=== PATIENT | male | born 1970 | race Caucasian/White ===

== ENCOUNTER 2023-11-11 21:43 | Emergency (ER) | payer OTHER, SELFPAY ==
--- NOTE | ~2023-11-11 | CT_ITS ---
CT abdomen pelvis w con Ordering provider: Genna Doshi PA-C History: 53 years Male with . lower abd pain, diarrhea, vomiting . Comparison: None. Technique: CT abdomen and pelvis with IV and without oral contrast. Automated exposure control and it erative reconstruction technique were employed. The dose-length product was 1302.15 mGy-cm. 100 mL Om nipaque 350 was given IV. Findings: VISUALIZED LOWER CHEST: Bilateral dependent atelectatic changes. UPPER ABDOMINAL ORGANS: Liver: Mild hepatomegaly. Gallbladder: Normal. Spleen: Normal. Stomach/duodenum: Normal. Pancreas: Normal. Adrenals: Slightly prominent left adrenal gland. Kidneys: Normal. PELVIC ORGANS: The bladder shows slightly thickened wall. Evaluation for cystitis advised. Enlarged p rostate. BOWEL AND MESENTERY: Colon: No evidence of diverticulitis. Normal appendix. Small Bowel: Fluid containing small bowel is seen in the pelvis which may indicate diarrhea. No obstr uction. Peritoneum/mesentery: No free air or free fluid. No mesenteric lymphadenopathy. RETROPERITONEUM: Mild atheromatous disease of the abdominal aorta. No retroperitoneal lymphadenopat hy. MUSCULOSKELETAL: Superficial soft tissues: Bilateral fat containing inguinal hernias. Otherwise, The superficial soft tissues are normal. Bones: Age appropriate degenerative changes of the spine. IMPRESSION: 1. No evidence of appendicitis, diverticulitis or intestinal obstruction. 2. Fluid in the small bowel loops in the pelvic area which may indicate diarrhea. 3. Mild hepatomegaly. Reviewed, dictated and finalized at location A. IMPRESSION: 1. No evidence of appendicitis, diverticulitis or intestinal obstruction. 2. Fluid in the small bowel loops in the pelvic area which may indicate diarrh ea. 3. Mild hepatomegaly.
[2023-11-11 21:49] VITALS: BP 120/86; PULSE 100; RESP 16; TEMP 36.8; O2SAT 100
[2023-11-11 21:59] LABS: Basophils Percent Auto 0.3 % (0.2-1.2); Eosinophils Absolute Auto 0.4 K/mm3 (0-0.3); Eosinophils Percent Auto 3.1 % (0-4.4); Hematocrit 51.7 % (42.0-52.0); Hemoglobin 17.5 g/dL (14.0-18.0); Immature Granulocyte Absolute 0.07 K/mm3 (0.00-0.031); Immature Granulocyte Percent A 0.6 % (0-0.5); Lymphocytes Absolute Auto 3.26 K/mm3 (0.9-3.2); Mean Corpuscular HGB Conc 33.8 g/dl (32-36); Mean Corpuscular Hemoglobin 30.7 pg (26-34); Mean Corpuscular Volume 90.7 fl (80-100); Mean Platelet Volume 8.4 fl (7.4-10.4); Monocytes Absolute Auto 1.2 K/mm3 (0.1-0.6); Monocytes Percent Auto 9.5 % (2.6-8.5); Neutrophils Absolute Auto 7.2 K/mm3 (1.3-6.7); Neutrophils Percent Auto 59.5 % (45.5-73.1); Platelet Count Result 326 k/mm3 (150-375); Red Cell Distribution Width 12.7 % (11.5-14.5); White Blood Count 12.1 K/mm3 (4.5-10.0)
[2023-11-11 22:11] LABS: Alanine Aminotransferase 20 U/L (6-50); Albumin Level 4.8 g/dL (3.5-5.1); Alkaline Phosphatase 92 U/L (38-126); Anion Gap 12 mmol/L (4-12); Aspartate Amino Transferase 30 U/L (17-59); Bilirubin,Total 0.8 mg/dL (0.2-1.3); Blood Urea Nitrogen 20 mg/dL (9-20); Carbon Dioxide 29 mmol/L (22-30); Chloride 100 mmol/L (98-107); Estimated CRCL calculation 83 ml/min; Estimated Glomerular Filt Rate > 60; Glucose 159 mg/dL (65-110); Lipase 89 U/L (23-300); Potassium 3.6 mmol/L (3.4-5.0); Sodium 141 mmol/L (137-145)
[2023-11-11] MEDS: ONDANSETRON INJ 4 MG/2 ML VIAL IV PUSH (22:16)
[2023-11-11] MEDS: SODIUM CHLORIDE 0.9% IV 1,000 ML 999 ML IV CONT (22:16)
[2023-11-11] MEDS: MORPHINE SULFATE (*CRX) 4 MG/ML INJ IV PUSH (22:17)
[2023-11-11 22:23] LABS: Lactic Acid Reflex 1.4 mmol/L (0.7-2.0)
--- NOTE | 2023-11-11 22:47 | ED.ABDPAIN ---
HPI - Abdominal Pain General Chief Complaint: Abdominal Pain Stated Complaint: abd pain, N/V/D Time Seen by Provider: 11/11/23 21:46 Source: patient Mode of arrival: ambulatory Limitations: no limitations History of Present Illness HPI narrative: Patient is a 53-year-old male who presents the ED with report of abdominal pain. Patient reports he began having diffuse pain throughout his lower abdomen/periumbilical region around 6:00 p.m. tonight. Denies bad food exposure. States he had just woken up from his sleep as he works midnights. He began having increased flatulence, bloating, diarrhea. He attempted taking Maalox at home and began having nausea with vomiting afterwards. Denies ever having similar pain like this previously. Denies history of diverticulitis, bowel obstruction. Has never had a colonoscopy. Related Data Allergies Allergy/AdvReac Type Severity Reaction Status Date / Time No Known Allergies Allergy Verified 11/11/23 21:54 Review of Systems Review of Systems: All systems reviewed & are unremarkable except as noted in HPI. All systems reviewed & are unremarkable except as noted in HPI and below Exam Narrative: GENERAL: Mildly uncomfortable appearing, obese with BMI of 35.7, non-toxic, in no acute distress. HEAD: Normocephalic, atraumatic. RESPIRATORY: Airway patent, respirations nonlabored. Clear to auscultation bilaterally, no rales, rhonchi, wheezing. CARDIOVASCULAR: Regular rate and rhythm without murmurs, rubs, or gallops. ABDOMINAL: Abdomen is somewhat distended, but still soft. Diffuse tenderness throughout lower abdomen/periumbilical region, worse in RLQ. Normoactive BS. Audible borborygmi. MUSCULOSKELETAL: Moves all extremities. No gross deformities. SKIN: Warm, dry, normal color. NEURO: A&O X3. Speech clear. Cranial nerves II-XII grossly intact. Steady gait. No ataxic movements. PSYCHIATRIC: Appropriate mood and affect. Normal interaction. Course Vital Signs Vital signs: Vital Signs Temperature 98.2 F 11/11/23 21:49 Pulse Rate 100 11/11/23 21:49 Respiratory Rate 16 11/11/23 21:49 Blood Pressure 120/86 11/11/23 21:49 Pulse Oximetry 100 11/11/23 21:49 Oxygen Delivery Room Air 11/11/23 21:49 Temperature 98.2 F 11/11/23 21:49 Pulse Rate 86 11/12/23 00:20 Respiratory Rate 15 11/12/23 00:20 Blood Pressure 134/94 H 11/12/23 00:20 Pulse Oximetry 97 11/12/23 00:20 Oxygen Delivery Room Air 11/11/23 21:49 MDM - Abdominal Pain MDM Narrative Medical decision making narrative: Patient presented to ED with several hour onset of lower abdominal/periumbilical abdominal pain, increased flatulance. Vital signs are stable upon arrival. Patient mildly uncomfortable appearing. Morphine and Zofran ordered. CBC with a WBC of 12.1. CMP unremarkable. Stable electrolytes. Stable kidney function. Blood glucose 159. Patient does have history of diabetes and is on Mounjaro. Lactic acid within normal limits at 1.4. Normal LFTs and lipase. CT scan of abdomen/pelvis obtained and fairly unremarkable. Does show evidence of fluid in the small bowel loops which may indicate diarrhea. Consistent with clinical picture. Personal review images shows large amount of flatulence throughout bowels. Discussed lab and imaging findings with patient, overall relatively reassuring workup. Patient is feeling better with supportive therapy. Pain improved. Discussed discharge home with gas-x, wei siegel, can use OTC Imodium, Tylenol/ibuprofen. Discussed possibility of a viral gastroenteritis. Advised patient have follow-up with his PCP for further evaluation. He was given strict return precautions and voiced understanding. He is in agreement with plan and feels comfortable with discharge home. Discharged in stable condition. Medical Records Attestation: I reviewed the patient's medical records. Lab Data Attestation: I reviewed the patient's lab results. 11/11/23 21:5
[2023-11-12 00:20] VITALS: BP 134/94; PULSE 86; RESP 15; O2SAT 97
[2023-11-12] MEDS: SIMETHICONE 125 MG CHEW TAB PO (00:35)
[2023-11-12] MEDS: KETOROLAC 30 MG/ML VIAL (*BKC) IV PUSH (00:36)
[2023-11-12] MEDS: DICYCLOMINE HCL 10 MG CAPSULE 20 MG PO (00:37)
[2023-11-12 00:50] VITALS: BP 118/88; PULSE 89; RESP 15; O2SAT 98
== END 2023-11-12 00:51 | disposition home or self-care (01) ==
PROVIDERS: Emergency Provider Physician Assistant; PCP Family Medicine Adolescent Medicine
DX: R10.33 Periumbilical pain (principal); R19.7 Diarrhea, unspecified; R16.0 Hepatomegaly, not elsewhere classified
CPT/HCPCS: 36415; 74177; 80053; 83605; 83690; 85025; 96361; 96374; 96375; 99284; A9270; J1885; J2270; J2405; J7030; Q9967